=== PATIENT | female | born 1990 | race Caucasian/White ===

== ENCOUNTER → 2017-10-24 | Outpatient (CLI) | payer OTHER | LOC: HPND 12:25 | DX: O99.213 Obesity complicating pregnancy, third trimester (principal); E66.01 Morbid (severe) obesity due to excess calories; Z68.43 Body mass index [BMI] 50.0-59.9, adult; O24.410 Gestational diabetes mellitus in pregnancy, diet controlled | CPT/HCPCS: 76816 ==